=== PATIENT | male | born 1955 | race African-American/Black ===

== ENCOUNTER 2016-07-28 08:45 | Inpatient (IN) ==
[2016-07-28 09:32] LABS: Bilirubin,Urine Small (Negative); Blood,Urine Small (Negative); Clarity,Urine Turbid (Clear); Color,Urine Red (Yellow); Glucose,Urine (UA) Normal (Normal); Ketones,Urine 40 mg/dL (Negative); Leukocyte Esterase,Urine Large (Negative); Nitrite,Urine Positive (Negative); Protein,Urine 100 mg/dL (Neg-Trace); Specific Gravity,Urine 1.024 (1.010-1.025)
[2016-07-28 09:33] LABS: Bacteria,Urine Many per hpf (None-Few); Hyaline Casts,Urine None Seen per lpf (None-Few); Squamous Epithelial Cell,Urine Many per lpf (None-Few); WBC,Urine TNTC per hpf (0-3)
--- NOTE | 2016-07-28 09:41 | Emergency Department Note ---
Disposition Clinical Impression: Ureteral calculus, Acute renal insufficiency UTI (urinary tract infection) Qualifiers: Urinary tract infection type: acute pyelonephritis Qualified Code(s): N10 - Acute pyelonephritis Disposition: Admitted As Inpatient Condition: Fair Referrals: Nahed Winston DO [Primary Care Provider] - Forms: Work/School Release, ED Satisfaction Letter Male Urogenital HPI - General Chief complaint: ED Abdominal Pain Stated complaint: urinary symptoms, back pain Time Seen by Provider: 07/28/16 09:02 Source: patient Mode of arrival: private vehicle Limitations: no limitations Nursing Notes Reviewed: Yes Vital Signs Reviewed: Yes - History of Present Illness Pt Subjective Complaint: other (lower abdominal and back pain, urinary frequency ), urinary retention Onset (ago): day(s) (since Sunday) Duration: gradually worsening Location: right flank, left flank, abdomen Severity: moderate Quality: sharp Improves with: none Worsens with: none other (Hx of stones and UTI) Reports: dysuria, nausea/vomiting - Related Data Allergies Allergy/AdvReac Type Severity Reaction Status Date / Time No Known Allergies Allergy Verified 07/28/16 08:57 All systems ED: reviewed and negative except as stated. Constitutional: Reports: chills. Denies: fever, weakness, weight change Cardiovascular: Denies: chest pain, palpitations, dyspnea on exertion, orthopnea , edema, syncope Respiratory: Denies: cough, dyspnea, wheezes Gastrointestinal: Reports: abdominal pain, nausea, vomiting (only on Sunday - 5 -6 times). Denies: diarrhea, constipation Genitourinary: Reports: urgency, dysuria, frequency. Denies: hematuria, discharge, testicular pain, testicular mass, genital lesions Musculoskeletal: Reports: as per HPI, back pain. Denies: neck pain, joint swelling, arthralgia Integumentary: Denies: rash Neurological: Denies: headache Hematological/Lymphatic: Denies: easy bleeding, easy bruising Past Medical History - Past Medical History Attestation: Yes The following information was validated with the patient. Source: patient Medical history: Reports: diabetes, kidney stones Surgical history: Reports: non-contributory Psychiatric history: Reports: no psych history - Social History Smoking Status: Current every day smoker Smokeless Tobacco Status: No Alcohol use: Reports: none Drug use: Reports: none Physical Exam - General Limitations: no limitations General appearance: alert, in no apparent distress - Head Head exam: atraumatic, normocephalic, normal inspection - Eye Eye exam: Present: normal appearance, PERRL. Absent: scleral icterus, conjunctival injection, periorbital swelling - ENT ENT exam: mucous membranes dry - Neck Neck exam: Present: normal inspection, full ROM, trachea midline - Chest Chest inspection: Present: normal inspection - Respiratory Respiratory exam: Present: normal lung sounds bilaterally. Absent: respiratory distress, wheezes, stridor, accessory muscle use, prolonged expiratory phase - Cardiovascular Cardiovascular exam: Present: normal rhythm, tachycardia, normal heart sounds - Abdominal Exam Abdominal Exam: Present: soft, tenderness, diminished bowel sounds. Absent: distention, guarding, rebound, rigidity, mass Abdominal Tenderness: Present: suprapubic, diffuse - Extremities Exam Extremities exam: Present: normal inspection, full ROM. Absent: pedal edema - Back Exam Back exam: Present: normal inspection, CVA tenderness (R), CVA tenderness (L). Absent: muscle spasm, paraspinal tenderness, vertebral tenderness - Neurological Exam Neurological exam: Present: alert, oriented X3, CN II-XII intact, normal gait - Psychiatric Psychiatric exam: Present: normal affect, normal mood - Skin Skin exam: Present: warm, dry, intact, normal color Course Course Narrative: Patient presents with abd. pain, urinary frquency and dysuria. He also had N/V on Sunday when symptoms began. He has had a kidney stone in the past (2001) and has had a kidney infection in the past. He denies abd surgery. He is tachycardic with borderline low BP for his size, and mild tachypnea. He is in significant pain. Will treat symptoms and check labs + imaging. Case discussed with Dr. aMier. Sepsis protocol initiated. Patient does have an elevated WBC count, but has a normal Lactate. Repeat vitals are improved after fluids. Transient low SPO2 was most-likely spurious as it is now normal and stable. No fever. Labs show LUCIAN. U/A shows infection. CT shows stone - distal, obstructing. Will consult Urology for admission. - Consultations Consultation #1: Dr. Heard will accept the patient for admission Time: 11:41 Vital Signs Temperature 98.8 F 07/28/16 08:52 Pulse Rate 135 07/28/16 08:52 Respiratory Rate 18 07/28/16 08:52 Blood Pressure 113/77 07/28/16 08:52 O2 Sat by Pulse Oximetry 98 07/28/16 08:52 Temperature 98.8 F 07/28/16 08:52 Pulse Rate 113 07/28/16 11:15 Respiratory Rate 16 07/28/16 11:15 Blood Pressure 116/71 07/28/16 11:15 O2 Sat by Pulse Oximetry 97 07/28/16 11:15 Oxygen Delivery Oxygen Delivery Nasal Cannula Urogenital-Male - Medical Records Medical records reviewed: Yes I reviewed the patient's medical records. - Lab Data Lab results reviewed: Yes I reviewed the patient's lab results. Lab results narrative: Laboratory Last Values WBC 13.3 K/mcL (4.3-11.1) H 07/28/16 09:52 RBC 5.62 M/mcL (4.19-5.50) H 07/28/16 09:52 Hgb 15.1 g/dL (12.9-16.9) 07/28/16 09:52 Hct 47.7 % (37.5-50.1) 07/28/16 09:52 MCV 84.9 fL (83.0-100.0) 07/28/16 09:52 MCH 26.9 pg (28.0-33.3) L 07/28/16 09:52 MCHC 31.7 g/dL (31.6-35.5) 07/28/16 09:52 RDW 13.1 % (11.5-14.5) 07/28/16 09:52 Plt Count 156 K/mcL (140-400) 07/28/16 09:52 MPV 11.2 fL (9.4-12.4) 07/28/16 09:52 Immature Gran % 0.5 % (0-4) 07/28/16 09:52 Seg Neutrophils % 80.6 % 07/28/16 09:52 Lymphocytes % 6.5 % 07/28/16 09:52 Monocytes % 12.2 % 07/28/16 09:52 Eosinophils % 0.0 % 07/28/16 09:52 Basophils % 0.2 % 07/28/16 09:52 Neutrophils # 10.7 K/mcL (1.6-8.9) H 07/28/16 09:52 Lymphocytes # 0.9 K/mcL (0.6-4.6) 07/28/16 09:52 Monocytes # 1.6 K/mcL (0.0-1.3) H 07/28/16 09:52 Eosinophils # 0.0 K/mcL (0.0-0.6) 07/28/16 09:52 Basophils # 0.0 K/mcL (0.0-0.2) 07/28/16 09:52 PT 13.5 Seconds (9.4-12.1) H 07/28/16 09:52 INR 1.2 07/28/16 09:52 APTT 30.1 Seconds (26.0-36.0) 07/28/16 09:52 Sodium 138 mEq/L (136-145) 07/28/16 09:52 Potassium 4.0 mEq/L (3.5-4.5) 07/28/16 09:52 Chloride 97 mEq/L (98-109) L 07/28/16 09:52 Carbon Dioxide 30 mEq/L (19-29) H 07/28/16 09:52 BUN 26 mg/dL (8-26) 07/28/16 09:52 Creatinine 2.23 mg/dL (0.72-1.25) H 07/28/16 09:52 Est GFR ( Amer) 36 (> 60) L 07/28/16 09:52 Est GFR (Non-Af Amer) 30 (> 60) L 07/28/16 09:52 BUN/Creatinine Ratio 12 (6-26) 07/28/16 09:52 Glucose 158 mg/dL (70-99) H 07/28/16 09:52 Calculated Osmolality 294 (280-300) 07/28/16 09:52 Lactic Acid 1.5 mmol/L (0.5-2.2) 07/28/16 09:52 Calcium 10.0 mg/dL (8.6-10.8) 07/28/16 09:52 Phosphorus 3.6 mg/dL (2.3-4.7) 07/28/16 09:52 Magnesium 1.8 mg/dL (1.6-2.6) 07/28/16 09:52 Total Bilirubin 1.1 mg/dL (0.2-1.2) 07/28/16 09:52 Direct Bilirubin 0.5 mg/dL (0.0-0.5) 07/28/16 09:52 Indirect Bilirubin 0.6 mg/dL (0.0-1.2) 07/28/16 09:52 AST 12 Units/L (5-34) 07/28/16 09:52 ALT 14 Units/L (0-55) 07/28/16 09:52 Alkaline Phosphatase 56 Units/L (38-126) 07/28/16 09:52 Serum Total Protein 7.7 g/dL (6.0-8.3) 07/28/16 09:52 Albumin 3.2 g/dL (3.5-5.0) L 07/28/16 09:52 Globulin 4.5 g/dL (2.4-3.5) H 07/28/16 09:52 Albumin/Globulin Ratio 0.7 (1.1-2.2) L 07/28/16 09:52 Lipase 26 Units/L (8-78) 07/28/16 09:52 Urine Color Red (Yellow) A 07/28/16 09:15 Urine Clarity Turbid (Clear) A 07/28/16 09:15 Urine pH 5.0 pH Units (5.0-8.0) 07/28/16 09:15 Ur Specific [place] 1.024 (1.010-1.025) 07/28/16 09:15 Urine Protein 100 mg/dL (Neg-Trace) H 07/28/16 09:15 Urine Glucose (UA) Normal mg/dL (Normal) 07/28/16 09:15 Urine Ketones 40 mg/dL (Negative) H 07/28/16 09:15 Urine Blood Small (Negative) H 07/28/16 09:15 Urine Nitrite Positive (Negative) A 07/28/16 09:15 Urine Bilirubin Small (Negative) H 07/28/16 09:15 Urine Urobilinogen 4.0 mg/dL (Normal) H 07/28/16 09:15 Ur Leukocyte Esterase Large (Negative) H 07/28/16 09:15 Urine Microscopic RBC 0-3 per hpf (0-3) 07/28/16 09:15 Urine Microscopic WBC TNTC per hpf (0-3) H 07/28/16 09:15 Ur Squamous Epith Cells Many per lpf (None-Few) H 07/28/16 09:15 Urine Bacteria Many per hpf (None-Few) H 07/28/16 09:15 Hyaline Casts None Seen per lpf (None-Few) 07/28/16 09:15 Urine Yeast Test Not Performed 07/28/16 09:15 Ur Culture Indicated? YES (NO) A 07/28/16 09:15 Result diagrams: 07/28/16 09:52 07/28/16 09:52 Lab Results 07/28/16 07/28/16 07/28/16 Range/Units 09:15 09:52 09:52 WBC 13.3 H (4.3-11.1) K/mcL RBC 5.62 H (4.19-5.50) M/mcL Hgb 15.1 (12.9-16.9) g/dL Hct 47.7 (37.5-50.1) % MCV 84.9 (83.0-100.0) fL MCH 26.9 L (28.0-33.3) pg MCHC 31.7 (31.6-35.5) g/dL RDW 13.1 (11.5-14.5) % Plt Count 156 (140-400) K/mcL MPV 11.2 (9.4-12.4) fL Immature Gran % 0.5 (0-4) % Seg Neutrophils % 80.6 % Lymphocytes % 6.5 % Monocytes % 12.2 % Eosinophils % 0.0 % Basophils % 0.2 % Neutrophils # 10.7 H (1.6-8.9) K/mcL Lymphocytes # 0.9 (0.6-4.6) K/mcL Monocytes # 1.6 H (0.0-1.3) K/mcL Eosinophils # 0.0 (0.0-0.6) K/mcL Basophils # 0.0 (0.0-0.2) K/mcL PT 13.5 H (9.4-12.1) Seconds INR 1.2 APTT 30.1 (26.0-36.0) Seconds Sodium (136-145) mEq/L Potassium (3.5-4.5) mEq/L Chloride (98-109) mEq/L Carbon Dioxide (19-29) mEq/L BUN (8-26) mg/dL Creatinine (0.72-1.25) mg/dL Est GFR ( Amer) (> 60) Est GFR (Non-Af Amer) (> 60) BUN/Creatinine Ratio (6-26) Glucose (70-99) mg/dL Calculated Osmolality (280-300) Lactic Acid (0.5-2.2) mmol/L Calcium (8.6-10.8) mg/dL Phosphorus (2.3-4.7) mg/dL Magnesium (1.6-2.6) mg/dL Total Bilirubin (0.2-1.2) mg/dL Direct Bilirubin (0.0-0.5) mg/dL Indirect Bilirubin (0.0-1.2) mg/dL AST (5-34) Units/L ALT (0-55) Units/L Alkaline Phosphatase (38-126) Units/L Serum Total Protein (6.0-8.3) g/dL Albumin (3.5-5.0) g/dL Globulin (2.4-3.5) g/dL Albumin/Globulin Ratio (1.1-2.2) Lipase (8-78) Units/L Urine Color Red A (Yellow) Urine Clarity Turbid A (Clear) Urine pH 5.0 (5.0-8.0) pH Units Ur Specific [place] 1.024 (1.010-1.025) Urine Protein 100 H (Neg-Trace) mg/dL Urine Glucose (UA) Normal (Normal) mg/dL Urine Ketones 40 H (Negative) mg/dL Urine Blood Small H (Negative) Urine Nitrite Positive A (Negative) Urine Bilirubin Small H (Negative) Urine Urobilinogen 4.0 H (Normal) mg/dL Ur Leukocyte Esterase Large H (Negative) Urine Microscopic RBC 0-3 (0-3) per hpf Urine Microscopic WBC TNTC H (0-3) per hpf Ur Squamous Epith Cells Many H (None-Few) per lpf Urine Bacteria Many H (None-Few) per hpf Hyaline Casts None Seen (None-Few) per lpf Urine Yeast Test Not Performed Ur Culture Indicated? YES A (NO) 07/28/16 07/28/16 Range/Units 09:52 09:52 WBC (4.3-11.1) K/mcL RBC (4.19-5.50) M/mcL Hgb (12.9-16.9) g/dL Hct (37.5-50.1) % MCV (83.0-100.0) fL MCH (28.0-33.3) pg MCHC (31.6-35.5) g/dL RDW (11.5-14.5) % Plt Count (140-400) K/mcL MPV (9.4-12.4) fL Immature Gran % (0-4) % Seg Neutrophils % % Lymphocytes % % Monocytes % % Eosinophils % % Basophils % % Neutrophils # (1.6-8.9) K/mcL Lymphocytes # (0.6-4.6) K/mcL Monocytes # (0.0-1.3) K/mcL Eosinophils # (0.0-0.6) K/mcL Basophils # (0.0-0.2) K/mcL PT (9.4-12.1) Seconds INR APTT (26.0-36.0) Seconds Sodium 138 (136-145) mEq/L Potassium 4.0 (3.5-4.5) mEq/L Chloride 97 L (98-109) mEq/L Carbon Dioxide 30 H (19-29) mEq/L BUN 26 (8-26) mg/dL Creatinine 2.23 H (0.72-1.25) mg/dL Est GFR ( Amer) 36 L (> 60) Est GFR (Non-Af Amer) 30 L (> 60) BUN/Creatinine Ratio 12 (6-26) Glucose 158 H (70-99) mg/dL Calculated Osmolality 294 (280-300) Lactic Acid 1.5 (0.5-2.2) mmol/L Calcium 10.0 (8.6-10.8) mg/dL Phosphorus 3.6 (2.3-4.7) mg/dL Magnesium 1.8 (1.6-2.6) mg/dL Total Bilirubin 1.1 (0.2-1.2) mg/dL Direct Bilirubin 0.5 (0.0-0.5) mg/dL Indirect Bilirubin 0.6 (0.0-1.2) mg/dL AST 12 (5-34) Units/L ALT 14 (0-55) Units/L Alkaline Phosphatase 56 (38-126) Units/L Serum Total Protein 7.7 (6.0-8.3) g/dL Albumin 3.2 L (3.5-5.0) g/dL Globulin 4.5 H (2.4-3.5) g/dL Albumin/Globulin Ratio 0.7 L (1.1-2.2) Lipase 26 (8-78) Units/L Urine Color (Yellow) Urine Clarity (Clear) Urine pH (5.0-8.0) pH Units Ur Specific [place] (1.010-1.025) Urine Protein (Neg-Trace) mg/dL Urine Glucose (UA) (Normal) mg/dL Urine Ketones (Negative) mg/dL Urine Blood (Negative) Urine Nitrite (Negative) Urine Bilirubin (Negative) Urine Urobilinogen (Normal) mg/dL Ur Leukocyte Esterase (Negative) Urine Microscopic RBC (0-3) per hpf Urine Microscopic WBC (0-3) per hpf Ur Squamous Epith Cells (None-Few) per lpf Urine Bacteria (None-Few) per hpf Hyaline Casts (None-Few) per lpf Urine Yeast Ur Culture Indicated? (NO) - Radiology Data Radiology results reviewed: Yes I reviewed the patient's radiology results. Abdomen/Pelvis CT 07/28/16 09:46 IMPRESSION: Obstructing 5 mm stone at the right trigone of the urinary bladder. Other findings above. D/ / Luis Talavera MD / Luis Talavera MD Interpreting Provider: Luis Talavera MD - EKG Data EKG attestation: Yes I reviewed and interpreted this EKG. EKG shows normal: sinus rhythm Rate: tachycardia Rhythm: NSR [place]/QRS: normal QRS morphology: J-point elevation Interpretation: unchanged when compared to prior tracing (date)
[2016-07-28 09:42] LABS: RBC,Urine 0-3 per hpf (0-3)
[2016-07-28] MEDS ORDERED: Ondansetron 4 MG/2 ML VIAL IVP ONE (09:46)
[2016-07-28] MEDS: 0.9 % Sodium Chloride 1,000 ML IVC SCH ×5 (09:56→22:12)
[2016-07-28 10:06] LABS: Basophils % 0.2 %; Hematocrit 47.7 % (37.5-50.1); Hemoglobin 15.1 g/dL (12.9-16.9); Immature Granulocytes % 0.5 % (0-4); Lymphocytes # 0.9 K/mcL (0.6-4.6); Lymphocytes % 6.5 %; Mean Corpuscular HGB Conc 31.7 g/dL (31.6-35.5); Mean Corpuscular Hemoglobin 26.9 pg (28.0-33.3); Mean Corpuscular Volume 84.9 fL (83.0-100.0); Mean Platelet Volume 11.2 fL (9.4-12.4); Monocytes # 1.6 K/mcL (0.0-1.3); Monocytes % 12.2 %; Neutrophils # 10.7 K/mcL (1.6-8.9); Platelet Count 156 K/mcL (140-400); Red Blood Count 5.62 M/mcL (4.19-5.50); Red Cell Distribution Width 13.1 % (11.5-14.5); Segmented Neutrophils % 80.6 %
[2016-07-28 10:16] LABS: INR 1.2; Prothrombin Time 13.5 Seconds (9.4-12.1)
[2016-07-28 10:18] LABS: Activated Partial Thrombo Time 30.1 Seconds (26.0-36.0)
[2016-07-28 10:21] LABS: Albumin 3.2 g/dL (3.5-5.0); Albumin/Globulin Ratio 0.7 (1.1-2.2); Bilirubin,Direct 0.5 mg/dL (0.0-0.5); Bilirubin,Indirect 0.6 mg/dL (0.0-1.2); Bilirubin,Total 1.1 mg/dL (0.2-1.2); Globulin 4.5 g/dL (2.4-3.5); Magnesium 1.8 mg/dL (1.6-2.6); Phosphorous 3.6 mg/dL (2.3-4.7); Total Protein 7.7 g/dL (6.0-8.3)
[2016-07-28] MEDS ORDERED: Levofloxacin 750 MG/150 ML 750 MG/150 ML BAG IVPB ONE (10:31)
[2016-07-28] MEDS ORDERED: *HR* Morphine 2 MG/ML SYRINGE IV ONE (11:14)
--- NOTE | 2016-07-28 11:30 | Emergency Department Note ---
Disposition Clinical Impression: Ureteral calculus, UTI (urinary tract infection), Acute renal insufficiency Disposition: Admitted As Inpatient Condition: Fair General Adult HPI - General Chief complaint: ED Abdominal Pain Stated complaint: urinary symptoms, back pain Time Seen by Provider: 07/28/16 09:02 Source: patient Limitations: no limitations - History of Present Illness Pain Scale: 0 - Related Data Allergies Allergy/AdvReac Type Severity Reaction Status Date / Time No Known Allergies Allergy Verified 07/28/16 08:57 Past Medical History - Past Medical History Medical history: Reports: diabetes Psychiatric history: Reports: no psych history - Social History Smoking Status: Current every day smoker Smokeless Tobacco Status: No Alcohol use: Reports: none Drug use: Reports: none Physical Exam - General Limitations: no limitations General appearance: alert, in no apparent distress Course Vital Signs Temperature 98.8 F 07/28/16 08:52 Pulse Rate 135 07/28/16 08:52 Respiratory Rate 18 07/28/16 08:52 Blood Pressure 113/77 07/28/16 08:52 O2 Sat by Pulse Oximetry 98 07/28/16 08:52 Temperature 98.5 F 07/28/16 13:30 Pulse Rate 105 07/28/16 13:30 Respiratory Rate 18 07/28/16 13:30 Blood Pressure 119/73 07/28/16 13:30 O2 Sat by Pulse Oximetry 96 07/28/16 13:30 Oxygen Delivery Oxygen Delivery Nasal Cannula Medical Decision Making - Lab Data Result diagrams: 07/28/16 09:52 07/28/16 09:52 Lab Results 07/28/16 07/28/16 07/28/16 Range/Units 09:15 09:52 09:52 WBC 13.3 H (4.3-11.1) K/mcL RBC 5.62 H (4.19-5.50) M/mcL Hgb 15.1 (12.9-16.9) g/dL Hct 47.7 (37.5-50.1) % MCV 84.9 (83.0-100.0) fL MCH 26.9 L (28.0-33.3) pg MCHC 31.7 (31.6-35.5) g/dL RDW 13.1 (11.5-14.5) % Plt Count 156 (140-400) K/mcL MPV 11.2 (9.4-12.4) fL Immature Gran % 0.5 (0-4) % Seg Neutrophils % 80.6 % Lymphocytes % 6.5 % Monocytes % 12.2 % Eosinophils % 0.0 % Basophils % 0.2 % Neutrophils # 10.7 H (1.6-8.9) K/mcL Lymphocytes # 0.9 (0.6-4.6) K/mcL Monocytes # 1.6 H (0.0-1.3) K/mcL Eosinophils # 0.0 (0.0-0.6) K/mcL Basophils # 0.0 (0.0-0.2) K/mcL PT 13.5 H (9.4-12.1) Seconds INR 1.2 APTT 30.1 (26.0-36.0) Seconds Sodium (136-145) mEq/L Potassium (3.5-4.5) mEq/L Chloride (98-109) mEq/L Carbon Dioxide (19-29) mEq/L BUN (8-26) mg/dL Creatinine (0.72-1.25) mg/dL Est GFR ( Amer) (> 60) Est GFR (Non-Af Amer) (> 60) BUN/Creatinine Ratio (6-26) Glucose (70-99) mg/dL Calculated Osmolality (280-300) Lactic Acid (0.5-2.2) mmol/L Calcium (8.6-10.8) mg/dL Phosphorus (2.3-4.7) mg/dL Magnesium (1.6-2.6) mg/dL Total Bilirubin (0.2-1.2) mg/dL Direct Bilirubin (0.0-0.5) mg/dL Indirect Bilirubin (0.0-1.2) mg/dL AST (5-34) Units/L ALT (0-55) Units/L Alkaline Phosphatase (38-126) Units/L Serum Total Protein (6.0-8.3) g/dL Albumin (3.5-5.0) g/dL Globulin (2.4-3.5) g/dL Albumin/Globulin Ratio (1.1-2.2) Lipase (8-78) Units/L Urine Color Red A (Yellow) Urine Clarity Turbid A (Clear) Urine pH 5.0 (5.0-8.0) pH Units Ur Specific [place] 1.024 (1.010-1.025) Urine Protein 100 H (Neg-Trace) mg/dL Urine Glucose (UA) Normal (Normal) mg/dL Urine Ketones 40 H (Negative) mg/dL Urine Blood Small H (Negative) Urine Nitrite Positive A (Negative) Urine Bilirubin Small H (Negative) Urine Urobilinogen 4.0 H (Normal) mg/dL Ur Leukocyte Esterase Large H (Negative) Urine Microscopic RBC 0-3 (0-3) per hpf Urine Microscopic WBC TNTC H (0-3) per hpf Ur Squamous Epith Cells Many H (None-Few) per lpf Urine Bacteria Many H (None-Few) per hpf Hyaline Casts None Seen (None-Few) per lpf Urine Yeast Test Not Performed Ur Culture Indicated? YES A (NO) 07/28/16 07/28/16 Range/Units 09:52 09:52 WBC (4.3-11.1) K/mcL RBC (4.19-5.50) M/mcL Hgb (12.9-16.9) g/dL Hct (37.5-50.1) % MCV (83.0-100.0) fL MCH (28.0-33.3) pg MCHC (31.6-35.5) g/dL RDW (11.5-14.5) % Plt Count (140-400) K/mcL MPV (9.4-12.4) fL Immature Gran % (0-4) % Seg Neutrophils % % Lymphocytes % % Monocytes % % Eosinophils % % Basophils % % Neutrophils # (1.6-8.9) K/mcL Lymphocytes # (0.6-4.6) K/mcL Monocytes # (0.0-1.3) K/mcL Eosinophils # (0.0-0.6) K/mcL Basophils # (0.0-0.2) K/mcL PT (9.4-12.1) Seconds INR APTT (26.0-36.0) Seconds Sodium 138 (136-145) mEq/L Potassium 4.0 (3.5-4.5) mEq/L Chloride 97 L (98-109) mEq/L Carbon Dioxide 30 H (19-29) mEq/L BUN 26 (8-26) mg/dL Creatinine 2.23 H (0.72-1.25) mg/dL Est GFR ( Amer) 36 L (> 60) Est GFR (Non-Af Amer) 30 L (> 60) BUN/Creatinine Ratio 12 (6-26) Glucose 158 H (70-99) mg/dL Calculated Osmolality 294 (280-300) Lactic Acid 1.5 (0.5-2.2) mmol/L Calcium 10.0 (8.6-10.8) mg/dL Phosphorus 3.6 (2.3-4.7) mg/dL Magnesium 1.8 (1.6-2.6) mg/dL Total Bilirubin 1.1 (0.2-1.2) mg/dL Direct Bilirubin 0.5 (0.0-0.5) mg/dL Indirect Bilirubin 0.6 (0.0-1.2) mg/dL AST 12 (5-34) Units/L ALT 14 (0-55) Units/L Alkaline Phosphatase 56 (38-126) Units/L Serum Total Protein 7.7 (6.0-8.3) g/dL Albumin 3.2 L (3.5-5.0) g/dL Globulin 4.5 H (2.4-3.5) g/dL Albumin/Globulin Ratio 0.7 L (1.1-2.2) Lipase 26 (8-78) Units/L Urine Color (Yellow) Urine Clarity (Clear) Urine pH (5.0-8.0) pH Units Ur Specific [place] (1.010-1.025) Urine Protein (Neg-Trace) mg/dL Urine Glucose (UA) (Normal) mg/dL Urine Ketones (Negative) mg/dL Urine Blood (Negative) Urine Nitrite (Negative) Urine Bilirubin (Negative) Urine Urobilinogen (Normal) mg/dL Ur Leukocyte Esterase (Negative) Urine Microscopic RBC (0-3) per hpf Urine Microscopic WBC (0-3) per hpf Ur Squamous Epith Cells (None-Few) per lpf Urine Bacteria (None-Few) per hpf Hyaline Casts (None-Few) per lpf Urine Yeast Ur Culture Indicated? (NO) Attestation Statement - Attestation Attestation: For this encounter, I have reviewed the JEWELRY SORTER or PA documentation, treatment plan, and medical decision making; and I have had face to face time with this patient. 63-year-old comes in with flank pain. Examination does have tenderness in the flanks. Workup included CT scan and urine which shows an infected stone. Consultation with urology patient will be admitted IV antibiotics.
[2016-07-28] MEDS ORDERED: Ondansetron 4 MG/2 ML VIAL IVP PRN (12:17)
[2016-07-28] MEDS ORDERED: *HR* Morphine 2 MG/ML SYRINGE IVP PRN (12:17)
[2016-07-28] MEDS ORDERED: Naloxone 0.4 MG/ML INJ IVP PRN (12:17)
[2016-07-28] MEDS ORDERED: *HR* Promethazine 25 MG/ML VIAL IVP PRN (12:17)
[2016-07-28] MEDS ORDERED: *HR* HYDROmorphone (PF) 1 MG/ML SYRINGE IVP PRN (12:17)
[2016-07-28] MEDS ORDERED: 0.9 % Sodium Chloride 1,000 ML IVC SCH (12:30)
[2016-07-28] MEDS: *HR* HYDROcodone/Acet 5/325 mg TABLET PO SCH ×3 (14:30→23:38)
--- NOTE | 2016-07-28 18:08 | Urology History & Physical ---
Date of Encounter: 07/28/16 Time of Encounter: 18:06 Assessment and Plan (1) Ureteral stone with hydronephrosis Current Visit: Yes Status: Acute based on LUCIAN, leukocytosis will proceed with ureteroscopic stone extraction tomorrow AM if he doesnt pass stone overnight. strain urine. pain control (2) Acute renal insufficiency Current Visit: Yes Status: Acute IVF. recheck BMP in AM (3) UTI (urinary tract infection) Current Visit: Yes Status: Acute IV rocephin until cultures available. Qualifiers: Urinary tract infection type: acute pyelonephritis Qualified Code(s): N10 - Acute pyelonephritis History of Present Illness Chief complaint: flank pain HPI: Mr. Fisher is a 60 year old male onset of right flank pain on sunday. worsened prompting ER visit. also with acute illness and fever. +LUTS including some dysuria. ct scan with a 5 mm distal stone with hydronephrosis. WBC 13,000. Cr up to 2.26 Past Med Surg Social Fam HX - Past Medical History Medical history: diabetes Psychiatric history: no psych history - Past Surgical History Surgical History: non-contributory - Social History Smoking Status: Current every day smoker Smokeless Tobacco Status: No Alcohol use: none Drug use: none Medications and Allergies Allergies No Known Allergies Allergy (Verified 07/28/16 08:57) Review of Systems - Constitutional fatigue, fever(s), malaise, no chills - EENT Nose, mouth and throat: no dizziness - Cardiovascular no chest pain - Respiratory no cough - Gastrointestinal abdominal pain, nausea - Genitourinary flank pain - Musculoskeletal back pain - Integumentary no erythema - Neurological no confusion - Psychiatric no anxiety - Hematologic/Lymphatic no easy bleeding - Allergic/Immunologic no throat swelling Exam Initial Vital Signs Temp Pulse Resp BP Pulse Ox 98.8 F 135 18 113/77 98 07/28/16 08:52 07/28/16 08:52 07/28/16 08:52 07/28/16 08:52 07/28/16 08:52 - General physical appearance Present: well developed, no distress - Eyes Present: PERRL - ENT Present: normal nares - Neck Present: no masses - Respiratory Present: normal respiratory effort - Cardiovascular Cardiovascular exam IM: tachycardia - Abdomen Abdomen: Present: soft - Integumentary Present: no rash - Neurologic Present: normal coordination. Absent: disoriented, confused Urology Results - Labs 07/28/16 09:52 07/28/16 09:52 Abnormal lab results WBC 13.3 K/mcL (4.3-11.1) H 07/28/16 09:52 RBC 5.62 M/mcL (4.19-5.50) H 07/28/16 09:52 MCH 26.9 pg (28.0-33.3) L 07/28/16 09:52 Neutrophils # 10.7 K/mcL (1.6-8.9) H 07/28/16 09:52 Monocytes # 1.6 K/mcL (0.0-1.3) H 07/28/16 09:52 PT 13.5 Seconds (9.4-12.1) H 07/28/16 09:52 Chloride 97 mEq/L (98-109) L 07/28/16 09:52 Carbon Dioxide 30 mEq/L (19-29) H 07/28/16 09:52 Creatinine 2.23 mg/dL (0.72-1.25) H 07/28/16 09:52 Est GFR ( Amer) 36 (> 60) L 07/28/16 09:52 Est GFR (Non-Af Amer) 30 (> 60) L 07/28/16 09:52 Glucose 158 mg/dL (70-99) H 07/28/16 09:52 POC Glucose 133 (58-89) H 07/28/16 15:32 Albumin 3.2 g/dL (3.5-5.0) L 07/28/16 09:52 Globulin 4.5 g/dL (2.4-3.5) H 07/28/16 09:52 Albumin/Globulin Ratio 0.7 (1.1-2.2) L 07/28/16 09:52 Urine Color Red (Yellow) A 07/28/16 09:15 Urine Clarity Turbid (Clear) A 07/28/16 09:15 Urine Protein 100 mg/dL (Neg-Trace) H 07/28/16 09:15 Urine Ketones 40 mg/dL (Negative) H 07/28/16 09:15 Urine Blood Small (Negative) H 07/28/16 09:15 Urine Nitrite Positive (Negative) A 07/28/16 09:15 Urine Bilirubin Small (Negative) H 07/28/16 09:15 Urine Urobilinogen 4.0 mg/dL (Normal) H 07/28/16 09:15 Ur Leukocyte Esterase Large (Negative) H 07/28/16 09:15 Urine Microscopic WBC TNTC per hpf (0-3) H 07/28/16 09:15 Ur Squamous Epith Cells Many per lpf (None-Few) H 07/28/16 09:15 Urine Bacteria Many per hpf (None-Few) H 07/28/16 09:15 Ur Culture Indicated? YES (NO) A 07/28/16 09:15 All other labs normal.
[2016-07-29] MEDS: *HR* HYDROcodone/Acet 5/325 mg TABLET PO SCH ×6 (04:04→23:38)
[2016-07-29 05:25] LABS: Calcium 8.9 mg/dL (8.6-10.8); Potassium 4.1 mEq/L (3.5-4.5)
[2016-07-29] MEDS: 0.9 % Sodium Chloride 1,000 ML IVC SCH ×3 (06:17→17:40)
--- NOTE | 2016-07-29 07:12 | Urology Progress Note ---
Date of Encounter: 07/29/16 Time of Encounter: 07:10 - Assessment and Plan (1) Ureteral stone with hydronephrosis Current Visit: Yes Status: Acute Assessment and plan: stone is likely still present based on symptoms. proceed with stone extraction. (2) Acute renal insufficiency Current Visit: Yes Status: Acute Assessment and plan: small improvement but Cr still elevated. (3) UTI (urinary tract infection) Current Visit: Yes Status: Acute Assessment and plan: continue Rocephin. low grade temp and pt is tachycardic. Qualifiers: Urinary tract infection type: acute pyelonephritis Qualified Code(s): N10 - Acute pyelonephritis Progress Note Subjective: still having pain, pain is less, nausea Narrative: pt did not pass the stone Objective Initial Vital Signs Temp Pulse Resp BP Pulse Ox 98.8 F 135 18 113/77 98 07/28/16 08:52 07/28/16 08:52 07/28/16 08:52 07/28/16 08:52 07/28/16 08:52 - General physical appearance Present: well developed, no distress - Abdomen Present: soft - Labs 07/28/16 09:52 07/29/16 04:41 Diabetes panel 07/29/16 Range/Units 04:41 Sodium 138 (136-145) mEq/L Potassium 4.1 (3.5-4.5) mEq/L Chloride 103 (98-109) mEq/L Carbon Dioxide 25 (19-29) mEq/L BUN 25 (8-26) mg/dL Creatinine 1.91 H (0.72-1.25) mg/dL Glucose 122 H (70-99) mg/dL Calcium 8.9 (8.6-10.8) mg/dL Calcium panel 07/29/16 Range/Units 04:41 Calcium 8.9 (8.6-10.8) mg/dL Pituitary panel 07/29/16 Range/Units 04:41 Sodium 138 (136-145) mEq/L Potassium 4.1 (3.5-4.5) mEq/L Chloride 103 (98-109) mEq/L Carbon Dioxide 25 (19-29) mEq/L BUN 25 (8-26) mg/dL Creatinine 1.91 H (0.72-1.25) mg/dL Glucose 122 H (70-99) mg/dL Calcium 8.9 (8.6-10.8) mg/dL Adrenal panel 07/29/16 Range/Units 04:41 Sodium 138 (136-145) mEq/L Potassium 4.1 (3.5-4.5) mEq/L Chloride 103 (98-109) mEq/L Carbon Dioxide 25 (19-29) mEq/L BUN 25 (8-26) mg/dL Creatinine 1.91 H (0.72-1.25) mg/dL Glucose 122 H (70-99) mg/dL Calcium 8.9 (8.6-10.8) mg/dL - VTE Documentation of Mechanical Device: Intermittent pneumatic compression device Consult Discharge Plan - Plan Referrals: Rebeca Mariano CNP [Advanced Practice Nurse] - 08/04/16 9:45 am
[2016-07-29] MEDS ORDERED: *HR* Midazolam HCl 2 MG/2 ML VIAL ONE (07:24)
[2016-07-29] MEDS ORDERED: Lidocaine -MPF 4% 5 ML AMPUL ONE (07:24)
[2016-07-29] MEDS ORDERED: *HR* FentaNYL (PF) 100 MCG/2 ML VIAL ONE (07:24)
[2016-07-29] MEDS ORDERED: Lidocaine -MPF 2% 2 ML VIAL ONE ×2 (07:24→07:25)
[2016-07-29] MEDS ORDERED: *HR* Propofol 200 MG/20 ML VIAL IVP ONE (07:25)
--- NOTE | 2016-07-29 07:38 | Anesthesia Evaluation PreOp ---
Date of Encounter: 07/29/16 Time of Encounter: 07:35 - Past History Planned Operation: C&P/Stent Cardiac History: Denies any Significant Hx, HTN (maintained on Lisinopril, Norvasc), Hyperlipidemia (maintained on Zocor) Pulmonary History: Smoker (quit 3 yrs ago s/p 1ppd x 45yrs), COPD (Denies, but RA O2 Sats in Pre-Op Holding bouncing from 85%-94%. Improves to 96-97% on 2L NC) MATHS TUTOR History: Other (Anxiety/Depression maintained on Cymbalta) Other Medical History: Diabetes Type II (maintained on Metformin) Anesthesia History: No Prior Anesthetic Complications, Past Anesthesia (I&D rectal abcess) Alcohol Use: none Drug use: none Medications and Allergies Amlodipine [Norvasc] 5 mg PO DAILY 07/28/16 [History] Duloxetine [Cymbalta] 30 mg PO BID 07/28/16 [History] Gabapentin [Neurontin] 300 mg PO BID 07/28/16 [History] HYDROcodone/Acet 10/325 mg [[place] 10-325 mg] 1 tab PO Q6HR PRN 07/28/16 [History ] Lisinopril [Zestril] 20 mg PO QPM 07/28/16 [History] Lisinopril [Zestril] 30 mg PO QAM 07/28/16 [History] Metformin HCl [Glucophage] 1,000 mg PO BID 07/28/16 [History] Simvastatin [Zocor] 20 mg PO HS 07/28/16 [History] Allergies No Known Allergies Allergy (Verified 07/28/16 08:57) - Meds/Allergy Pre-op Review Medications Reviewed: Yes Allergies Reviewed: Yes Beta Blockers on Current Med List: No Anesthesia Results - Labs 07/28/16 09:52 07/29/16 04:41 Laboratory Tests 07/29/16 04:41 Creatinine 1.91 H Est GFR (Non-Af Amer) 36 L Laboratory Results Impressions Abdomen/Pelvis CT 07/28/16 09:46 IMPRESSION: Obstructing 5 mm stone at the right trigone of the urinary bladder. Other findings above. D/ / Luis Talavera MD / Luis Talavera MD Interpreting Provider: Luis Talavera MD Anesthesia Exam Vital Signs Temp Pulse Resp BP Pulse Ox 07/29/16 07:21 99.0 F 109 16 117/76 97 07/29/16 04:22 97.9 F 123 18 127/78 95 07/28/16 23:39 97.7 F 122 18 116/67 93 L 07/28/16 20:00 99.8 F H 116 18 132/75 96 07/28/16 13:30 98.5 F 105 18 119/73 96 07/28/16 12:26 106 16 112/79 97 07/28/16 12:25 16 112/79 07/28/16 11:15 113 16 116/71 97 07/28/16 10:40 124 16 133/90 98 07/28/16 09:51 94 L 07/28/16 09:41 121 18 117/79 94 L 07/28/16 08:52 98.8 F 135 18 113/77 98 Intake and Output 07/28/16 07/28/16 07/29/16 15:59 23:59 07:59 Intake Total 1350 / 1350 800 / 800 1083 / 1083 Output Total 400 / 400 100 / 100 450 / 450 Balance 950 / 950 700 / 700 633 / 633 Intake: IV Fluids 1350 / 1350 800 / 800 1083 / 1083 0.9 % Sodium Chloride 1, 1200 / 1200 800 / 800 1083 / 1083 000 ML @ 125 mls/hr IVC . Q8H [facility] Rx#:[id number] Levaquin 750mg/150 mL 750 150 / 150 mg In 150 ml @ 100 mls/ hr IVPB ONCE ONE Rx#: [id number] Oral 0 / 0 0 / 0 0 / 0 Output: Urine 400 / 400 100 / 100 450 / 450 Other: Meal Lunch Percent of Meal Consumed 0% Weight 99.79 kg 99.7 kg Blood Glucose* 133 94 123 Patient Weight 07/29/16 23:59 Weight 99.7 kg Height: 5'9" Weight: 219# BMI = 32.5 NPO (# of Hours): MNoc - HEENT Pupil (Motor): Pupils equal, EOMI Mallampati: II Teeth: Normal (Fair dentition) Oral Opening: Greater than 3 - MATHS TUTOR LOC: Oriented MATHS TUTOR Motor: Normal RUE, Normal LUE, Normal RLE, Normal LLE, Normal Face MATHS TUTOR Sensory: Normal: RUE, LUE, RLE, LLE, Face - Cardiac Rhythm: Regular Murmur: None - Pulmonary Breath Sounds: bilateral Clear Respiratory Effort: Symmetrical Anesthesia Assess/Plan ASA Score: 3 (UTI, ARF, HTN, DM, Chol, COPD, Anxiety/Depression) Modified Margaret Scale for Level of Consciousness: Cooperative, oriented, and tranquil Anesthetic Plan: General Monitoring Plan: Standard Monitors Recovery Plan: PACU Anes Supervising Prov Stmt: PT seen/evaluated, R&B Discussed, questions answered and consent obtained. Rivka العلي MD
[2016-07-29] MEDS ORDERED: Famotidine 20 MG/2 ML VIAL ONE (07:52)
[2016-07-29] MEDS ORDERED: Metoclopramide 10 MG/2 ML VIAL ONE (07:52)
[2016-07-29] MEDS ORDERED: Acetaminophen IV 1,000 MG/100 ML INFUS..BTL ONE (07:52)
[2016-07-29] MEDS ORDERED: *HR* Phenylephrine 10 MG/ML VIAL ONE (08:27)
[2016-07-29] MEDS ORDERED: Ondansetron 4 MG/2 ML VIAL ONE (08:34)
[2016-07-29] MEDS ORDERED: Dexamethasone 4 MG/ML VIAL ONE (08:34)
[2016-07-29] MEDS ORDERED: *HR* HYDROmorphone (PF) 1 MG/ML SYRINGE IVP PRN ×2 (08:43→09:51)
[2016-07-29] MEDS ORDERED: *HR* Promethazine 25 MG/ML VIAL IVP PRN ×2 (08:43→09:51)
[2016-07-29] MEDS ORDERED: *HR* Labetalol 100 MG/20 ML MDV IVP PRN (08:43)
--- NOTE | 2016-07-29 09:11 | Operative Note ---
Date of procedure: 07/29/16 Pre-op diagnosis: right distal ureteral stone with hydronephrosis Procedure: Right ureteroscopic stone extraction Right retrograde pyelogram Right double-J stent placement Anesthesia: GETA Surgeon: Owen Heard Estimated blood loss (cc): 0 Specimen: Stone Condition: stable Disposition: PACU Procedure in Detail: PROCEDURE IN DETAIL: Patient was taken back to the operating room, positioned supine on the operating table. Anesthesia was applied without complication. They were moved into dorsal lithotomy. Careful attention was maintained to cushion all pressure points for patient's safety. They were prepped and draped in sterile fashion. Time-out was performed with the proper patient and procedure. A 21-Gabonese rigid cystoscope was inserted into the bladder without difficulty. Systematic examination of bladder revealed a very distorted, edematous right trigone. I was initially unable to visualize the ureteral orifice. After approximately 20 minutes of probing the area with a 5 Gabonese and zip wire it appeared the zip wire passed up the ureter. The 5 Gabonese was passed over the zip wire in the zip wire was removed. Retrograde pyelogram confirmed good position. There was significant return of purulent fluid from the ureteral orifice once it was cannulated. A semi-rigid ureteroscope was carefully inserted into the bladder and guided into the ureteral oriface. At that point , the stone was encountered and removed using a 1.9 tipples basket. No laser lithotripsy was required. The stone was impacted within the distal ureter. All stone in the ureter was removed. A 4.8 x 26 ureteral stent was placed over the zip wire under fluoroscopy without complication. The bladder was drained. No string was left attached to the stent
[2016-07-29] MEDS ORDERED: D5% in Water 1,000 ML IV PRN (09:51)
[2016-07-29] MEDS ORDERED: Naloxone 0.4 MG/ML INJ IVP PRN (09:51)
[2016-07-29] MEDS ORDERED: Dextrose Gel 15 GM PO PRN ×2 (09:51)
[2016-07-29] MEDS ORDERED: *HR* Dextrose 50 % in Water (Syg) 50 ML SYRINGE IVP PRN (09:51)
[2016-07-29] MEDS ORDERED: *HR* Morphine 2 MG/ML SYRINGE IVP PRN (09:51)
[2016-07-29] MEDS ORDERED: Ondansetron 4 MG/2 ML VIAL IVP PRN (09:51)
--- NOTE | 2016-07-29 10:32 | Anesthesia Evaluation Post Op ---
Date of Encounter: 07/29/16 Time of Encounter: 09:30 - Vital Signs Vital Signs: Vital Signs/O2 Sat/Glucose, Most Current Temp Pulse Resp BP Pulse Ox 07/29/16 10:03 94 18 119/79 94 L 07/29/16 09:54 98.1 F 99 18 117/77 93 L 07/29/16 09:52 93 L 07/29/16 09:34 98.8 F 97 16 113/67 94 L 07/29/16 09:24 94 16 107/73 95 07/29/16 09:14 97 16 114/76 94 L 07/29/16 09:04 99.1 F 98 14 114/72 94 L 07/29/16 07:21 99.0 F 109 16 117/76 97 - Lungs Lungs: Clear Ascult./Percussion - Airway Airway: Non-obstructed - Cardiovascular Regular Rate - Mental Status Mental Status: Alert & Oriented, Answers Appropriately - Pain Pain Scale: 0 Pain Scale used: Numeric (1 - 10) - Nausea Vomiting Nausea Vomiting: Not Present - Hydration Hydration: Ice chips, Has not voided - Discharge PostOp Status: Transfer Patient to floor Anes Supervising Prov Stmt: Pt seen/evaluated, VSS and pt has met criteria for discharge to floor. - MD Zohra
[2016-07-29 11:05] LABS: Acinetobacter baumannii by PCR Not Detected (Not Detect); Candida albicans by PCR Not Detected (Not Detect); Candida glabrata by PCR Not Detected (Not Detect); Candida krusei by PCR Not Detected (Not Detect); Candida parapsilosis by PCR Not Detected (Not Detect); Candida tropicalis by PCR Not Detected (Not Detect); Enterococcus by PCR Not Detected (Not Detect); Escherichia coli by PCR ***DETECTED*** (Not Detect); Klebsiella oxytoca by PCR Not Detected (Not Detect); Klebsiella pneumoniae by PCR Not Detected (Not Detect); Pseudomonas aeruginosa by PCR Not Detected (Not Detect); Serratia marcescens by PCR Not Detected (Not Detect); Staphylococcus aureus by PCR Not Detected (Not Detect); Streptococcus agalactiae(B)PCR Not Detected (Not Detect); Streptococcus by PCR Not Detected (Not Detect); Streptococcus pneumoniae PCR Not Detected (Not Detect); Streptococcus pyogenes (A) PCR Not Detected (Not Detect); blaKPC Carbapenem-Resist Gene Not Detected (Not Detect)
[2016-07-29] MEDS: Insulin LISPRO 300 UNITS/3 ML VIAL SQ SCH ×2 (12:17→17:39)
[2016-07-29] MEDS: Gabapentin 300 MG CAPSULE PO SCH (20:39)
[2016-07-30 04:18] LABS: Mean Corpuscular HGB Conc 31.3 g/dL (31.6-35.5); Mean Corpuscular Hemoglobin 26.9 pg (28.0-33.3); Mean Corpuscular Volume 86.2 fL (83.0-100.0); Mean Platelet Volume 11.1 fL (9.4-12.4); Platelet Count 183 K/mcL (140-400); Red Blood Count 4.64 M/mcL (4.19-5.50); Red Cell Distribution Width 12.9 % (11.5-14.5)
[2016-07-30] MEDS: 0.9 % Sodium Chloride 1,000 ML IVC SCH (04:19)
[2016-07-30 04:22] LABS: Hemoglobin 12.5 g/dL (12.9-16.9)
[2016-07-30] MEDS: *HR* HYDROcodone/Acet 5/325 mg TABLET PO SCH (04:22)
[2016-07-30 04:36] LABS: Potassium 4.6 mEq/L (3.5-4.5)
--- NOTE | 2016-07-30 07:21 | Discharge Summary ---
Date of Encounter: 07/30/16 Time of Encounter: 07:17 - Discharge Diagnosis (1) Ureteral stone with hydronephrosis Priority: Primary Status: Resolved (2) Acute renal insufficiency Priority: Secondary Status: Resolved (3) UTI (urinary tract infection) Priority: Secondary Status: Resolved Qualifiers: Urinary tract infection type: acute pyelonephritis Qualified Code(s): N10 - Acute pyelonephritis - Discharge Medications Prescriptions: HYDROcodone/Acet 10/325 mg [[place] 10-325 mg] 1 tab PO Q6HR PRN #20 tablet PRN Reason: Pain Cefdinir [Omnicef] 300 mg PO BID #28 capsule Phenazopyridine [Pyridium] 100 mg PO TID PRN #30 tablet PRN Reason: burning with urination Home Medications: Amlodipine [Norvasc] 5 mg PO DAILY 07/28/16 [History] Duloxetine [Cymbalta] 30 mg PO BID 07/28/16 [History] Gabapentin [Neurontin] 300 mg PO BID 07/28/16 [History] Lisinopril [Zestril] 20 mg PO QPM 07/28/16 [History] Lisinopril [Zestril] 30 mg PO QAM 07/28/16 [History] Simvastatin [Zocor] 20 mg PO HS 07/28/16 [History] Cefdinir [Omnicef] 300 mg PO BID #28 capsule 07/30/16 [Rx] HYDROcodone/Acet 10/325 mg [[place] 10-325 mg] 1 tab PO Q6HR PRN #20 tablet [Rx] Phenazopyridine [Pyridium] 100 mg PO TID PRN #30 tablet 07/30/16 [Rx] Allergies/Adverse Reactions: Allergies No Known Allergies Allergy (Verified 07/28/16 08:57) Labs on day of discharge: Labs from last 24 hours 07/30/16 07/30/16 07/29/16 03:47 03:47 21:01 WBC 10.7 RBC 4.64 Hgb 12.5 L D Hct 40.0 MCV 86.2 MCH 26.9 L MCHC 31.3 L RDW 12.9 Plt Count 183 MPV 11.1 Sodium 141 Potassium 4.6 H Chloride 107 Carbon Dioxide 27 BUN 31 H Creatinine 1.56 H Est GFR ( Amer) 55 L Est GFR (Non-Af Amer) 45 L BUN/Creatinine Ratio 20 Glucose 165 H POC Glucose 212 H Calculated Osmolality 302 H Calcium 9.0 07/29/16 07/29/16 15:43 12:05 WBC RBC Hgb Hct MCV MCH MCHC RDW Plt Count MPV Sodium Potassium Chloride Carbon Dioxide BUN Creatinine Est GFR ( Amer) Est GFR (Non-Af Amer) BUN/Creatinine Ratio Glucose POC Glucose 282 H 184 H Calculated Osmolality Calcium Date of admission: 07/29/16 09:13 Primary care physician: Nahde Winston DO Discharging clinician: Owen Heard Anticipated date of discharge: 07/30/16 - Patient Status Disposition: Home, Self-Care Condition: Good Functional capacity at discharge: independent ambulation Overall status at discharge: patient is progressing back to baseline - Discharge Instructions Follow Up With: Rebeca Mariano CNP [Advanced Practice Nurse] - 08/04/16 9:45 am Owen Heard MD [Partnered Physician] - (10-14 days for office cystoscopy and stent removal) - Diet and Activity Activity: increase activity as tolerated Diet: diabetic diet - Hospital Course Hospital course: Mr. Fisher is a 60 year old male admitted with an obstructing stone with hydronephrosis. Concern for sepsis. IV antibiotics started. Patient underwent successful stone extraction and stent placement yesterday. Blood cultures were positive. Sensitivities back at this time. he feels much better after stone extraction. Tachycardia resolved. No fever. Vital signs stable. - Time Spent with Patient Total time spent providing and/or coordinating discharge services: Exam Initial Vital Signs Temp Pulse Resp BP Pulse Ox 98.8 F 135 18 113/77 98 07/28/16 08:52 07/28/16 08:52 07/28/16 08:52 07/28/16 08:52 07/28/16 08:52 - General physical appearance Present: well developed, no distress - Musculoskeletal Present: normal gait - VTE Documentation of Mechanical Device: Intermittent pneumatic compression device
[2016-07-30 07:42] VITALS: BP 132/79
[2016-07-30] MEDS: Insulin LISPRO 300 UNITS/3 ML VIAL SQ SCH (08:29)
[2016-07-30] MEDS: Gabapentin 300 MG CAPSULE PO SCH (08:31)
[2016-07-30] MEDS ORDERED: amLODIPine 5 MG TABLET PO SCH (09:00)
--- NOTE | 2016-07-31 09:23 | Electrocardiograph Report ---
[facility] Test Date: 2016-07-28 Pat Name: Marcell Fisher Department: 105 Room: 3A43 Gender: M Bilingual Instructor: LEONIDES : 1955 Requested By: Yaquelin Charles Order Number: [id number] Reading MD: Aurelio Macario MD Measurements Intervals [place] Rate: 131 P: 63 OR: 135 QRS: 35 QRSD: 89 T: 47 QT: 280 QTc: 357 Interpretive Statements SINUS TACHYCARDIA ST ELEVATION, PROBABLY EARLY REPOLARIZATION POOR R WAVE PROGRESSION Electronically Signed On 07-31-16 09:22:21 EST by Aurelio Macario MD
== END 2016-07-30 10:02 | disposition home or self-care (01) | DRG 669 ==
LOC: 3ANU 08:45 → EMEROO 08:45 → 3ANU 13:10
PROVIDERS: ADMIT Urology; ATTEND Urology

== ENCOUNTER 2021-11-10 18:44 | Inpatient (IN) ==
[2021-11-10 20:16] LABS: BUN/Creatinine Ratio 17 (6-26); Blood Urea Nitrogen 25 mg/dL (8-23); Calcium 9.1 mg/dL (8.6-10.3); Carbon Dioxide 30 mEq/L (23-29); Chloride 94 mEq/L (98-107); Glucose 465 mg/dL (70-105); Osmolality,Calculated 299 (280-300); Potassium 4.1 mEq/L (3.5-5.1); Sodium 132 mEq/L (136-145); eGFR For African Americans 59 (> 60); eGFR For Non-African Americans 48 (> 60)
[2021-11-10 20:22] LABS: Basophils % 0.4 %; Hematocrit 42.5 % (37.5-50.1); Hemoglobin 13.5 g/dL (12.9-16.9); Immature Granulocytes % 0.4 % (0-4); Lymphocytes # 1.3 K/mcL (0.6-4.6); Mean Corpuscular HGB Conc 31.8 g/dL (31.6-35.5); Mean Corpuscular Hemoglobin 27.3 pg (28.0-33.3); Mean Corpuscular Volume 85.9 fL (83.0-100.0); Mean Platelet Volume 11.9 fL (9.4-12.4); Monocytes # 0.7 K/mcL (0.0-1.3); Neutrophils # 3.6 K/mcL (1.6-8.9); Platelet Count 117 K/mcL (140-400); Red Blood Count 4.95 M/mcL (4.19-5.50); Red Cell Distribution Width 13.6 % (11.5-14.5); Segmented Neutrophils % 63.2 %; White Blood Count 5.7 K/mcL (4.3-11.1)
[2021-11-10] MEDS ORDERED: 0.9 % Sodium Chloride 1,000 ML IVC ONE (20:23)
[2021-11-10 20:41] LABS: Estimated Average Glucose 361 mg/dl; Hemoglobin A1C 14.2 %
[2021-11-10 21:46] LABS: Bilirubin,Urine Negative (Negative); Blood,Urine Trace (Negative); Clarity,Urine Clear (Clear); Color,Urine Light-Yellow (Yellow); Glucose,Urine (UA) >=1000 mg/dL (Normal); Ketones,Urine Negative (Negative); Leukocyte Esterase,Urine Large (Negative); Nitrite,Urine Negative (Negative); PH,Urine 5.5 pH Units (5.0-8.0); Protein,Urine Trace mg/dL (Neg-Trace); Specific Gravity,Urine > 1.030 (1.010-1.025); Squamous Epithelial Cell,Urine Few per hpf (None-Few); Urobilinogen,Urine Normal (Normal); WBC,Urine 30-50 per hpf (0-3)
[2021-11-10 21:48] LABS: Amphetamine Screen,Urine Negative ng/mL (Cutoff=1000); Barbiturate Screen,Urine Negative ng/mL (Cutoff=200); Benzodiazepines Screen,Urine Negative ng/mL (Cutoff=200); Cannabinoid Screen,Urine Negative ng/mL (Cutoff = 50); Cocaine Screen,Urine Negative ng/mL (Cutoff= 300); Opiate Screen,Urine Negative ng/mL (Cutoff=300); Phencyclidine Screen,Urine Negative ng/mL (Cutoff=25)
[2021-11-10] MEDS ORDERED: Insulin LISPRO 300 UNITS/3 ML VIAL SUBQ ONE (21:57)
[2021-11-10 22:12] LABS: Ethanol < 10 mg/dL (Less than 10)
[2021-11-10 23:15] LABS: VBG HCO3 27 mEq/L (21-27); VBG PCO2 33 mmHg (41-51); VBG PH 7.52 pH Units (7.32-7.42); VBG PO2 173 mmHg (25-50)
[2021-11-10] MEDS ORDERED: cefTRIAXone 1,000 MG in 0.9 % Sodium Chloride 10 ML IVP ONE (23:44)
[2021-11-11] MEDS ORDERED: Melatonin 3 MG TABLET PO PRN (03:10)
[2021-11-11] MEDS ORDERED: Naloxone 0.4 MG/ML INJ IVP PRN (03:10)
[2021-11-11] MEDS ORDERED: Ondansetron 4 MG/2 ML VIAL IVP PRN (03:10)
[2021-11-11] MEDS ORDERED: Dextrose 4 GM Chewable Tablets PO PRN ×2 (03:13)
[2021-11-11] MEDS ORDERED: D5% in Water 1,000 ML IVC PRN (03:13)
[2021-11-11] MEDS ORDERED: *HR* Dextrose 50 % in Water (Syg) 50 ML SYRINGE IVP PRN (03:13)
[2021-11-11] MEDS: 0.9 % Sodium Chloride 1,000 ML IVC SCH ×2 (04:03→12:11)
[2021-11-11 05:32] LABS: Retculocyte # 0.05 M/mcL (0.05-0.10); Reticulocyte % 1.1 % (1.6-2.8)
[2021-11-11 05:33] LABS: Basophils % 0.5 %; Eosinophils % 0.4 %; Hematocrit 41.7 % (37.5-50.1); Hemoglobin 13.2 g/dL (12.9-16.9); Immature Granulocytes % 0.2 % (0-4); Lymphocytes # 1.2 K/mcL (0.6-4.6); Lymphocytes % 21.1 %; Mean Corpuscular HGB Conc 31.7 g/dL (31.6-35.5); Mean Corpuscular Hemoglobin 26.9 pg (28.0-33.3); Mean Corpuscular Volume 84.9 fL (83.0-100.0); Mean Platelet Volume 11.4 fL (9.4-12.4); Monocytes # 0.7 K/mcL (0.0-1.3); Monocytes % 12.3 %; Neutrophils # 3.6 K/mcL (1.6-8.9); Platelet Count 107 K/mcL (140-400); Red Blood Count 4.91 M/mcL (4.19-5.50); Red Cell Distribution Width 13.5 % (11.5-14.5); Segmented Neutrophils % 65.5 %; White Blood Count 5.5 K/mcL (4.3-11.1)
[2021-11-11 05:37] LABS: Prothrombin Time 11.5 Seconds (9.4-12.1)
[2021-11-11 05:39] LABS: Activated Partial Thrombo Time 27.7 Seconds (26.0-36.0)
[2021-11-11 05:48] LABS: Alanine Aminotransferase 13 Units/L (7-52); Albumin 3.3 g/dL (3.5-5.7); Alkaline Phosphatase 52 Units/L (34-104); Aspartate Amino Transferase 13 Units/L (13-39); BUN/Creatinine Ratio 16 (6-26); Bilirubin,Total 0.7 mg/dL (0.3-1.0); Blood Urea Nitrogen 22 mg/dL (8-23); Carbon Dioxide 29 mEq/L (23-29); Chloride 99 mEq/L (98-107); Globulin 3.2 g/dL (2.4-3.5); Glucose 332 mg/dL (70-105); Magnesium 1.7 mg/dL (1.6-2.6); Osmolality,Calculated 300 (280-300); Phosphorous 3.4 mg/dL (2.7-4.5); Potassium 3.8 mEq/L (3.5-5.1); Sodium 137 mEq/L (136-145); Total Protein 6.5 g/dL (6.4-8.9); eGFR For African Americans > 60 (> 60); eGFR For Non-African Americans 52 (> 60)
[2021-11-11 06:12] LABS: Folate 15.6 ng/mL (3.0-16.0)
[2021-11-11 06:24] LABS: Hepatitis B Surface Antigen Nonreactive (Nonreactive)
[2021-11-11 06:53] LABS: Hepatitis C Virus Antibody Nonreactive (Nonreactive)
[2021-11-11 06:54] LABS: Hepatitis B Core IgM Nonreactive (Nonreactive)
[2021-11-11 06:56] LABS: Hepatitis A Antibody IgM Nonreactive (Nonreactive)
[2021-11-11] MEDS ORDERED: Insulin LISPRO 300 UNITS/3 ML VIAL SUBQ SCH ×2 (07:30→21:00)
[2021-11-11] MEDS ORDERED: Insulin DETEMIR 100 UNIT/ML X5UNITS SUBQ SCH (09:00)
[2021-11-11] MEDS ORDERED: *HR* Alteplase (Cathflo) 2 MG VIAL IVP ONE (09:30)
[2021-11-11] MEDS ORDERED: Insulin LISPRO 300 UNITS/3 ML VIAL SUBQ ONE ×2 (12:03→21:30)
[2021-11-11] MEDS: Insulin LISPRO 300 UNITS/3 ML VIAL SUBQ SCH ×4 (12:12→22:08)
[2021-11-11 13:01] LABS: Chlamydia Trachomatis DNA Ur NOT DETECTED (Not Detect)
[2021-11-11] MEDS: QUEtiapine Fumarate 25 MG TABLET PO SCH ×2 (14:22→22:07)
[2021-11-11] MEDS: tiZANidine 4 MG TABLET PO PRN (18:03)
[2021-11-11] MEDS: Insulin DETEMIR 100 UNIT/ML X5UNITS SUBQ SCH (22:13)
[2021-11-11] MEDS ORDERED: cefTRIAXone 1,000 MG in 0.9 % Sodium Chloride 10 ML IVP ONE (23:00)
[2021-11-12 06:31] LABS: Basophils % 0.2 %; Eosinophils # 0.1 K/mcL (0.0-0.6); Eosinophils % 1.1 %; Hematocrit 40.3 % (37.5-50.1); Hemoglobin 12.7 g/dL (12.9-16.9); Immature Granulocytes % 0.4 % (0-4); Immature Platelets 6.3 % (1.1-6.1); Lymphocytes # 1.8 K/mcL (0.6-4.6); Lymphocytes % 32.5 %; Mean Corpuscular HGB Conc 31.5 g/dL (31.6-35.5); Mean Corpuscular Hemoglobin 26.8 pg (28.0-33.3); Mean Corpuscular Volume 85.2 fL (83.0-100.0); Mean Platelet Volume 11.5 fL (9.4-12.4); Monocytes # 0.5 K/mcL (0.0-1.3); Monocytes % 9.7 %; Platelet Count 109 K/mcL (140-400); Red Blood Count 4.73 M/mcL (4.19-5.50); Red Cell Distribution Width 13.5 % (11.5-14.5); Segmented Neutrophils % 56.1 %; White Blood Count 5.4 K/mcL (4.3-11.1)
[2021-11-12 06:49] LABS: BUN/Creatinine Ratio 15 (6-26); Blood Urea Nitrogen 19 mg/dL (8-23); Calcium 9.1 mg/dL (8.6-10.3); Carbon Dioxide 28 mEq/L (23-29); Chloride 104 mEq/L (98-107); Glucose 78 mg/dL (70-105); Osmolality,Calculated 295 (280-300); Potassium 3.5 mEq/L (3.5-5.1); Sodium 142 mEq/L (136-145); eGFR For African Americans > 60 (> 60); eGFR For Non-African Americans 57 (> 60)
[2021-11-12] MEDS: Insulin LISPRO 300 UNITS/3 ML VIAL SUBQ SCH ×10 (08:38→20:54)
[2021-11-12] MEDS: QUEtiapine Fumarate 25 MG TABLET PO SCH ×2 (08:55→20:53)
[2021-11-12] MEDS: Insulin DETEMIR 100 UNIT/ML X5UNITS SUBQ SCH ×2 (08:55→20:54)
[2021-11-12] MEDS: tiZANidine 4 MG TABLET PO PRN (10:50)
[2021-11-12] MEDS: lisinopriL 20 MG TABLET PO SCH (10:50)
[2021-11-12] MEDS ORDERED: Ketorolac 30 MG/ML VIAL IVP ONE (16:20)
[2021-11-13 02:42] LABS: Thyroid Stimulating Hormone 1.34 mcIU/mL (0.340-5.600)
[2021-11-13] MEDS: Insulin LISPRO 300 UNITS/3 ML VIAL SUBQ SCH ×7 (08:00→21:07)
[2021-11-13] MEDS: lisinopriL 20 MG TABLET PO SCH (09:23)
[2021-11-13] MEDS: Insulin DETEMIR 100 UNIT/ML X5UNITS SUBQ SCH ×2 (09:23→21:07)
[2021-11-13] MEDS: QUEtiapine Fumarate 25 MG TABLET PO SCH ×2 (09:23→18:14)
[2021-11-13] MEDS: Acetaminophen 325 MG TABLET PO PRN (16:59)
[2021-11-14] MEDS: Acetaminophen 325 MG TABLET PO PRN (03:45)
[2021-11-14 06:27] LABS: Prolactin 5.52 ng/mL (3.00-14.70)
[2021-11-14 06:49] LABS: Follicle Stimulating Hormone 10.69 mIU/mL (1.42-15.40)
[2021-11-14 06:50] LABS: Luteinizing Hormone 4.78 mIU/mL (1.24-7.80)
[2021-11-14] MEDS: Insulin LISPRO 300 UNITS/3 ML VIAL SUBQ SCH ×4 (08:26→12:04)
[2021-11-14] MEDS: Insulin DETEMIR 100 UNIT/ML X5UNITS SUBQ SCH (09:29)
[2021-11-14] MEDS: lisinopriL 20 MG TABLET PO SCH (09:29)
[2021-11-14] MEDS: QUEtiapine Fumarate 25 MG TABLET PO SCH (09:29)
[2021-11-14 11:39] VITALS: BP 133/74; PULSE 94; TEMP 98.5; O2SAT 90
[2021-11-16 08:54] LABS: IGF-1 Z-Score Calculation -0.2
== END 2021-11-14 16:09 | disposition home health service (06) | DRG 690 ==
LOC: 3ANU 18:44 → EMEROOARM 18:44 → SUATTDRO 11-11 02:06 → 3ANU 11-11 02:50 → SUATTDRO 11-13 19:03
PROVIDERS: ADMIT Internal Medicine; ATTEND Hospitalist